=== PATIENT | female | born 1995 | race Caucasian/White ===

== ENCOUNTER 2022-03-12 12:02 | Outpatient (CLI) | payer BC, SELFPAY ==
--- NOTE | 2022-03-12 12:15 | CRLHL7_ITS ---
For Patients: As a result of the Century Cures Act, medical imaging exams and procedure reports are released immediately into your electronic medical record. You may view this report before your referring provider. If you have questions, please contact your health care provider. INDICATION: First trimester scan, establish dates. COMPARISON: None. TECHNIQUE: Real-time patten-scale imaging of the pelvis was performed. FINDINGS: Sonographic imaging demonstrates a single living intrauterine gestation. The embryo demonstrates a regular cardiac rate measuring 159 beats per minute. The embryo`s crown-rump length measurement of 1.2 cm corresponds to a gestational age of 7 weeks 3 days with a sonographic due date of 10/26/2022. There is a normal-appearing yolk sac. There are no gross abnormalities noted within the embryo at this early state of development. The gestational sac has a normal appearance. There is no evidence of a perigestational hemorrhage. The amount of fluid within the sac appears appropriate for gestational age. The cervix is closed. The myometrium appears normal. Corpus luteal cyst right ovary. Left ovary not visualized. There are no suspicious fluid collections noted in the cul-de-sac. IMPRESSION: Normal first trimester OB ultrasound exam. Gestational age calculated at 7 weeks 3 days with a sonographic due date of 10/26/2022. Dictated by Issac Lynn MD @ 03/12/2022 1:12:35 PM (Electronically Signed)
== END 2022-03-12 12:03 | disposition home or self-care (01) ==
PROVIDERS: Visit Provider Registered Nurse
DX: Z34.91 Encounter for supervision of normal pregnancy, unspecified, first trimester (principal); Z3A.08 8 weeks gestation of pregnancy
CPT/HCPCS: 76817; 86592; 86703; 86762; 86787; 86803; 86850; 86900; 86901; 87086; 87340; 87491; 87591

== ENCOUNTER 2022-06-11 13:45 | Outpatient (CLI) | payer BC, SELFPAY ==
--- NOTE | 2022-06-11 14:00 | CRLHL7_ITS ---
For Patients: As a result of the Century Cures Act, medical imaging exams and procedure reports are released immediately into your electronic medical record. You may view this report before your referring provider. If you have questions, please contact your health care provider. INDICATION: Evaluate anatomy. COMPARISON: 03/12/2022 TECHNIQUE: Real time patten scale imaging of the fetus was performed as well as color Doppler analysis of the umbilical vessels. FINDINGS: Sonographic imaging demonstrates a single living intrauterine gestation. Fetus demonstrates a regular cardiac rate of 141 beats per minute. Fetus has a breech position. The placenta lies anteriorly without evidence of placenta previa. The edge of the placenta is located 5.1 cm from the internal cervical os. Amniotic fluid volume appears normal. Single deepest vertical pocket: 5.7 cm. The cervix is closed and measures 4.9 cm in length. The composite ultrasound gestational age is calculated at 20 weeks 4 days with an estimated sonographic due date of 10/25/2022. The estimated weight is 368 grams which lies at the 58th %. The following biometric measurements were obtained: Biparietal diameter: 4.9 cm/20 weeks 6 days 69th% Head circumference: 18.8 cm/21 weeks 1 day 72nd% Abdominal circumference: 15.6 cm/20 weeks 6 days 56th% Femur length: 3.3 cm/20 weeks 2 days 38th% The HC/AC ratio measures: 1.20 range (1.07-1.25) On anatomic survey, there is a normal appearance of the cerebral ventricles, cavum septi pellucidi, cisterna magna and cerebellum. The nose, lips, and facial profile appear normal. The cervical, thoracic and lumbar spine are well visualized and appear normal. There is a normal four-chamber heart view and the left and right ventricular outflow tracts appear normal. The diaphragm and stomach appear normal. The kidneys and bladder also appear normal. There is a normal three-vessel cord and cord insertion site. The four extremities appear normal. IMPRESSION: Normal OB ultrasound exam with concordance of clinical and sonographic dating. No intrinsic abnormalities noted on anatomic survey. Dictated by Issac Lynn MD @ 06/12/2022 9:54:17 AM (Electronically Signed)
== END 2022-06-11 13:46 | disposition home or self-care (01) ==
LOC: US 13:46
PROVIDERS: Visit Provider Advanced Practice Midwife
DX: Z34.92 Encounter for supervision of normal pregnancy, unspecified, second trimester (principal); Z3A.20 20 weeks gestation of pregnancy
CPT/HCPCS: 76805

== ENCOUNTER 2022-06-24 10:43 | Outpatient (CLI) | payer BC, SELFPAY ==
[2022-06-24 10:49] VITALS: BP 119/55; PULSE 66; RESP 18; TEMP 36.8; O2SAT 98
== END 2022-06-24 11:22 | disposition home or self-care (01) ==
LOC: OB OUT 10:44 → OB 10:48
PROVIDERS: Visit Provider Advanced Practice Midwife
DX: O36.8120 Decreased fetal movements, second trimester, not applicable or unspecified (principal); Z3A.22 22 weeks gestation of pregnancy
CPT/HCPCS: 99213

== ENCOUNTER 2022-08-05 13:30 | Outpatient (CLI) | payer BC, SELFPAY | END 2022-08-05 13:31 | disposition home or self-care (01) | LOC: NFLDREF 08-07 11:50 | PROVIDERS: Visit Provider Advanced Practice Midwife | DX: Z34.93 Encounter for supervision of normal pregnancy, unspecified, third trimester (principal); Z3A.28 28 weeks gestation of pregnancy | CPT/HCPCS: 86592; 86850 ==

== ENCOUNTER 2022-10-01 11:37 | Outpatient (CLI) | payer BC, SELFPAY ==
[2022-10-02 10:40] LABS: Strep B DNA Probe NEGATIVE (Negative)
[2022-10-02 12:06] LABS: Strep B Pen/Amox Allergy No
== END 2022-10-01 11:38 | disposition home or self-care (01) ==
LOC: NFLDREF 11:37
PROVIDERS: Visit Provider Advanced Practice Midwife
DX: Z34.93 Encounter for supervision of normal pregnancy, unspecified, third trimester (principal); Z3A.36 36 weeks gestation of pregnancy
CPT/HCPCS: 87081; 87653

== ENCOUNTER 2022-10-13 20:03 | Outpatient (CLI) | payer BC, SELFPAY ==
--- NOTE | 2022-10-13 21:48 | PC.OBNST ---
NST Note NST Note Start: 10/13/22 20:05 Freq: ONCE Status: Active Protocol: Document 10/13/22 21:45 AM (Rec: 10/13/22 21:47 AM [id number]) NST Note 1 Para (# of births) 0 EDC 10/26/22 Gestational Age In Weeks & Days 38 Weeks & 1 Days Patient Presented with Complaint(s) of Other Other Complaints Vaginal vs UTI Reactive Yes Appropriate for Gestational Age Yes RN Aminer RNC Date 10/13/22 Reactive Yes Appropriate for Gestational Age Yes RN dCarlson RN Date 10/13/22 OB NST charge Yes Complete NST Note via Write Note Yes The provider's electronic signature indicates the NST is reactive/appropriate for gestational age. *Note to provider: If an addendum is required, open the patient's chart and click on the note under the Nurse/Allied Health tab.
== END 2022-10-13 20:55 | disposition home or self-care (01) ==
LOC: OB OUT 20:03 → OB 20:04
PROVIDERS: Visit Provider Advanced Practice Midwife
DX: Z34.93 Encounter for supervision of normal pregnancy, unspecified, third trimester (principal); Z3A.38 38 weeks gestation of pregnancy
CPT/HCPCS: 59025; 99213

== ENCOUNTER 2022-10-15 19:53 | Outpatient (CLI) | payer BC, SELFPAY ==
[2022-10-15 20:08] VITALS: BP 118/72; PULSE 83
[2022-10-15 20:10] VITALS: PULSE 82; O2SAT 98
[2022-10-15] MEDS: hydrOXYzine pamoate 25 MG CAPSULE 100 MG PO (21:23)
[2022-10-15] MEDS: MORPHINE 10 MG/ML inj IM (21:23)
--- NOTE | 2022-10-15 21:50 | PC.OBNST ---
NST Note NST Note Start: 10/15/22 19:57 Freq: ONCE Status: Active Protocol: Document 10/15/22 21:44 AVL (Rec: 10/15/22 21:49 AVL [id number]) NST Note 1 Para (# of births) 0 EDC 10/26/22 Gestational Age In Weeks & Days 38 Weeks & 3 Days Patient Presented with Complaint(s) of Contractions/cramping Reactive Yes Appropriate for Gestational Age Yes RANJIT Jensen RN Date 10/15/22 Reactive Yes Appropriate for Gestational Age Yes RANJIT Gar RNC Date 10/15/22 OB NST charge Yes Complete NST Note via Write Note Yes The provider's electronic signature indicates the NST is reactive/appropriate for gestational age. *Note to provider: If an addendum is required, open the patient's chart and click on the note under the Nurse/Allied Health tab.
== END 2022-10-15 21:40 | disposition home or self-care (01) ==
LOC: OB OUT 19:55 → OB 19:56
PROVIDERS: Visit Provider Advanced Practice Midwife
DX: Z34.93 Encounter for supervision of normal pregnancy, unspecified, third trimester (principal); Z3A.38 38 weeks gestation of pregnancy
CPT/HCPCS: 59025; 99213; A9270; J2270

== ENCOUNTER 2022-10-27 21:00 | Inpatient (IN) | payer BC, SELFPAY ==
[2022-10-27 21:08] VITALS: BMI 34.7
[2022-10-27 21:13] VITALS: BP 120/75; PULSE 66; TEMP 36.7
--- NOTE | 2022-10-27 22:05 | P.LDBA_ITS ---
Subjective History of Present Illness Narrative: Patient is being admitted to Labor and Delivery for SROM.? She is a 27 year old at 40 Weeks, 1 Days gestation.? Her full history and physical was dictated by ODALYS Ramon on 10/08/22.? Please see this for details.? Aliya noticed some cramping this evening followed by SROM with clear fluid at 2030. Her contractions have increased in intensity since then and is now having to pause with them but is usually able to talk through them. She is appreciating good movement. 1. BMI 31.9 Hemoglobin A1c:Hemoglobin A1c 5.2% Rec. baby ASA at 12 wks 2. Varicella non-immune. Rec. PP vaccine [] 3. Blood Type: O NEG Rhogam at 28 weeks: received Needs Rhogam pp 4. Severe nausea at 12 weeks, Down 16 lbs Consider IV hydration if unable to keep hydrated, improving at 16 weeks? OB - Problem Based A/P Additional Plan (1) Pain during labor: Status: Acute (2) Post term over 40 weeks: Status: Acute (3) Rh negative status during : Status: Acute Plan ASSESSMENT:? at 40.1 weeks gestation? GBS negative? Uncomplicated ? Admit for labor with SROM ?? PLAN:? 1. Candidate for analgesia of choice. Planning epidural analgesia.? 2. Anticipate ? 3. Expectant management at this time.? 4. IV placement when she is ready for an epidural. 5. Intermittent auscultation after a reactive tracing until condition changes per unit policy.? ? Delivery/Labor/Induction Plan Plan: expectant management OB Result Labs Blood Type: 0 (-) negative Rubella: immune RPR/VDLR: nonreactive GBS Status: negative OB Exam Physical Exam Vital signs: Temp Pulse BP 98.1 F 66 120/75 10/27/22 21:13 10/27/22 21:13 10/27/22 21:13 Narrative: Psychiatric:? Alert and oriented x3? HEENT:? Normocephalic, atraumatic? Neck:? Supple without adenopathy or thyromegaly? Lungs:? Clear to auscultation bilaterally? Heart:? Regular rate and rhythm, no murmur, rub or gallop? Abdomen:? Soft, nontender, and gravid? Extremities:? No edema or erythema? Detailed Labor and Delivery Exam Patient Gravid: Yes Dilation (cm): 2 Effacement (%): 70 Cervix position: posterior Consistency: medium Contraction Frequency: 2-4 Tachysystole: No Contraction intensity: Moderate Fetus (Single) Station: -1 Amniotic Membrane Status: SROM Amniotic Membrane Fluid Description: Clear Heart Rate Baseline: 145 Monitor Accelerations: Absent Monitor Decelerations: None Insurance Agency Sales Manager Variability: Moderate (6-25)
[2022-10-27 22:07] VITALS: TEMP 36.7
[2022-10-27 23:05] VITALS: TEMP 36.7
[2022-10-28] VITALS (106 sets, daily range): BP systolic 83–137; BP diastolic 45–83; PULSE 67–141; RESP 17–19; TEMP 36.6–37.4; O2SAT 89–100
[2022-10-28] MEDS: LACTATED RINGERS 1000 ML 1,000 ML 1025 ML IV ×4 (00:21→16:32)
[2022-10-28] MEDS: LIDOCAINE 2% (PF) 5 ML VIAL EPIDURAL ×2 (01:12→15:28)
[2022-10-28] MEDS: ROPIVACAINE 0.2% 100 ml 100 ML 12 MG EPIDURAL ×3 (01:15→16:22)
--- NOTE | 2022-10-28 01:22 | P.ANBPRC_ITS ---
PFSH PFSH Social History What is your current living situation?: I presently have a place to live Problems where you live: no known problems In the past 12 months, utilities in danger of being shut off: no In the past 12 mos, have been you worried that your food would run out before you had money to buy more?: never true In the past 12 mos, the food you bought just didn't last and you didn't have money to buy more?: never true Smoking Status: Never smoker How often does anyone, including family, friends and others, physically hurt you : never How often does anyone, including family, friends and others, insult or talk down to you: never How often does anyone, including family, friends and others, threaten you with harm: never How often does anyone, including family, friends and others, scream or curse at you: never Little interest or pleasure in doing things: not at all Feeling down, depressed, or hopeless: not at all Meds Home Medications and Allergies Home Medications Medication Instructions Recorded Confirmed Type prenat.vits,yvonne,[id number] 1 tab PO QDAY 03/12/22 10/27/22 History aspirin 81 mg tablet,delayed 81 mg PO DAILY 06/24/22 10/27/22 History release (Adult Low Dose Aspirin) Allergies Allergy/AdvReac Type Severity Reaction Status Date / Time No Known Drug Allergies Allergy Verified 10/21/22 09:16 Results Vital Signs Vital Signs: Last Vital Signs Temp 98.1 F 10/27/22 23:05 Pulse 88 10/28/22 01:22 BP 114/58 L 10/28/22 01:22 Pulse Ox 100 10/28/22 01:20 Weight: 106.594 kg Height: 175.26 cm Anesthesia Procedures Epidural Insertion Patient Location: OB Start Time: 00:45 Stop Time: 01:45 Start Date: 10/28/22 Stop Date: 10/28/22 Reason for Block: procedure for pain Patient Position: sitting Performed By: Rosangela Kumar Preanesthetic Checklist: IV checked, risks and benefits discussed, monitors and equipment checked, pre-op evaluation, timeout performed and anesthesia consent Prep: chlorhexidine gluconate Monitoring: blood pressure monitoring, continuous pulse oximetry and heart rate Approach: midline Vertebral Space: lumbar (1-5) Epidural Technique: OSCAR saline Needle Type: Tuohy needle Injection Technique: continuous catheter (continuous catheter) Needle gauge: 17 Needle Length (cm): 10 cm Needle Insertion Depth (cm): 6 Catheter Gauge: 19 Catheter Type: multi-orifice Catheter at skin depth (cm): 15 Test Dose Result: negative and lidocaine 1.5% with epinephrine 1 to 200,000
[2022-10-28] MEDS: PHENYLEPHRINE 100 MCG/ML SYRINGE IVP ×2 (02:06→03:40)
--- NOTE | 2022-10-28 09:05 | PM.OBPNL ---
Subjective Time Seen by Provider: 09:00 Date Seen: 10/28/22 Narrative: Aliya presented from home with ROM around 2030, clear fluid. Ctx becoming more uncomfortable, she got an epidural during the middle of the night. She remains comfortable with this epidural. Her partner is at the bedside for support. Objective Exam: VSS, afebrile General Appearance:? Calm, cooperative. No acute distress. ? Psychiatric Exam: Alert and oriented, appropriate affect Abdomen: Gravid Ctx: ?Q 2-6 min apart. ?Mild - Moderate FHTs: Baseline: 140 . Variability: moderate. Accels: present. Decels: occ variable or early decel. SVE: 5/90/-2 Membranes: SROM X 12 hours ? Vital Signs: Last Vital Signs Temp 98.5 F 10/28/22 08:27 Pulse 73 10/28/22 08:53 Resp 17 10/28/22 08:27 BP 94/54 L 10/28/22 08:53 Pulse Ox 100 10/28/22 01:35 Contractions Contraction intensity: Moderate Assessment Station: -1 Heart Rate Baseline: 145 Plan Plan: Assessment:?? G 1 P0 at 40.2 weeks gestation?? GBS negative Patient is coping well with challenges of labor.?? Labor type: Spontaneous, Early labor? complicated by: BMI 31.9 Labor complicated by: Little change in cervical dilation ctx spaced out? ? Plan:?? Reviewed little change in dilation and that ctx remain spaced out. Recommended pitocin be started, which pt is agreeable to. Continue with routine intrapartum cares as ordered.?? Patient encouraged to move and change positions to promote physiologic labor and .?? Epidural in place. Anticipate progress to NVD.
[2022-10-28] MEDS: OXYTOCIN 30 unit/500 ML in NS 30 UNIT/500 ML BAG IVPB (09:10)
[2022-10-28] MEDS: LIDOCAINE 1 % PF 30 ML INJECTION (18:45)
--- NOTE | 2022-10-28 19:08 | W.PM.OBVAGDE ---
OB Procedure Vag Delivery Mother Details Mother Details: The patient is a 27 year-old, 1, now Para 1, admitted on 10/27/22 at Days gestation. : 1 Para: 1 Weeks Gestation: 40.2 Admission Date: 10/27/22 Additional Details Amniotic Membrane Status: SROM Amniotic Membrane Rupture Date: 10/27/22 Amniotic Membrane Rupture Time: 20:30 Amniotic Membrane Fluid Description: Clear Analgesia/Anesthesia Type: Epidural and Local Waterbirth: No Pitcoin: Yes (augmentation and AMTSL) Intrapartal Events: Labor Augmentation Labor Onset: 09:00 Complete: 16:42 Pushin:45 Heart: heart tones during second stage: decels noted with pushing, becoming deeper with a slower return to baseline as occurred. Delivery Details Delivery Date: 10/28/22 Delivery Time: 18:27 Route of delivery: Infant Gender: Male Viability: Alive; Heart Rate Present Position at Delivery: OA Delivery Details: Aliya was noted to be a rim, but baby remained high in the pelvis. She was very uncomfortable at that time, and anesthesia bolused her epidural. She was repositioned to hands and knees, and then to flying cowgirl. She then returned to hands and knees, and was noted to be feeling more pressure. SVE done, complete, baby remained high in the pelvis Pushing started, with good maternal effort. As pushing progressed, FHT decels noted to be deepening and slower return to baseline. Scalp stim done, with positive results. She continued to push with good progress. As infant crowned, FHTs noted to be in the 50s, and decision made to push through, even without cx. Head delivered slowly. Nuchal cord noted, loose, reduced prior to delivery. Anterior shoulder noted to be coming slowly, had to hook fingers under the axilla and gentle traction applied to . Reamaining shoulders and body delivered in sideways position, slowly. placed on mothers abdomen, and noted to be floppy. Cord clamped and cut, and to prewarmed open warmer for further evaluation. At 1827 a viable?male delivered in vertex OA presentation over intact perineum via spontaneous vaginal?delivery. weight 8 lb 14 oz. ? 4 at 1 minute and 7 at 5 minutes. ?Shoulder dystocia: no. ?Nuchal cord: yes, reduced prior to delivery Placenta delivered spontaneously and complete at 1836 with a 3 vessel cord. Mother and infant were stable after?delivery. Lacerations:? 2nd degree, repaired with 3-0 vicryl.? Blood loss: 150 mL. Blood loss measurement type: QBL? 1 Minute Interval Total Score: 4 5 Minute Interval Total Score: 7 Additional Details Shoulder Dystocia: No Placenta Delivery Time: 18:36 Placental Delivery Description: Spontaneous Delivery repair: Vicryl Procedure Done: Global Blood Loss: 150 Laceration: Perineal - 2nd Degree Blood Loss Measurement Type: QBL Bakri Used: No Sponge/Need Count Correct: Yes Cord Vessel Description: 3 Vessels, Nuchal Cord and Reduced Event Summary Status: Mother and infant were stable after delivery. Disposition: floor
[2022-10-28] MEDS: IBUPROFEN 600 MG TABLET PO (19:37)
[2022-10-28] MEDS: ACETAMINOPHEN 500 MG TABLET 1000 MG PO (22:44)
[2022-10-29] MEDS: IBUPROFEN 600 MG TABLET PO ×3 (01:16→20:02)
[2022-10-29 01:30] VITALS: BP 103/65; PULSE 71; RESP 18; TEMP 37; O2SAT 96
[2022-10-29] MEDS: ACETAMINOPHEN 500 MG TABLET 1000 MG PO (04:12)
[2022-10-29 05:20] VITALS: BP 105/62; PULSE 71; RESP 16; TEMP 36.6; O2SAT 96
[2022-10-29] MEDS: DOCUSATE SODIUM 100 MG CAPSULE PO (08:13)
[2022-10-29 08:16] VITALS: BP 106/65; PULSE 78; RESP 16; TEMP 36.6; O2SAT 96
--- NOTE | 2022-10-29 09:03 | PM.OBPNVD1 ---
OB - PN:Subj Subjective Date Seen: 10/29/22 Patient comments OB post-: no complaints, pain well controlled, perineal pain, tolerating diet and flatus present [place] infant status: and doing well Narrative: Aliya is a 27 y.o. who was admitted to L & D for spontaneous onset of labor. ?She had an uncomplicated NVD.?The patient feels well. ?The pain is well controlled with current medications. ?She has no new complaints. ?She is breast feeding and reports things are going well.? the patient has done well.? Vitals have been stable.? She has remained afebrile.? Has a good appetite, is tolerating a general diet. ?She is voiding without difficulty.? She is passing gas and has not had a bowel movement.? She is ambulating and denies any dizziness.? Has small amount of rubra lochia. OB - PN: Obj Exam Physical Exam: Vital signs: Temp Pulse Resp BP Pulse Ox O2 Del Method 97.8 F 78 16 106/65 96 Room Air 10/29/22 08:16 10/29/22 08:16 10/29/22 08:16 10/29/22 08:16 10/29/22 08:16 10/29/22 08:16 Narrative: GENERAL APPEARANCE:? normal affect, alert, no distress MOOD:? appropriate CHEST:? clear to auscultation HEART:? regular rate and rhythm ABDOMEN:? soft, non-tender the uterine fundus is at Umbilicus, Midline and is appropriate for the stage of recovery. PERINEUM:? mild edema of the perineum, there is a Perineal Laceration,? 2nd degree, that is healing well. EXTREMITIES:? normal and no edema OB - PN: A/P Delivery Assessment and Plan (1) care and examination immediately after delivery: Status: Acute (2) Lactating mother: Status: Acute Plan day: 1 Plan: routine care Comments: May see if desired. Anticipate discharge tomorrow.
[2022-10-29 12:04] VITALS: BP 108/68; PULSE 70; RESP 18; TEMP 36.7; O2SAT 96
[2022-10-29 16:00] VITALS: BP 109/68; PULSE 75; RESP 16; TEMP 36.9; O2SAT 98
[2022-10-29 23:58] VITALS: BP 106/62; PULSE 73; RESP 16; TEMP 36.8; O2SAT 95
--- NOTE | 2022-10-30 07:28 | P.DS_ITS ---
DS: Providers Provider Time Seen by Provider: 07:28 Date Seen: 10/30/22 Date of admission: 10/27/22 21:00 Primary care physician: Not a Local Provider Admitting Clinician: Melissa Smith CNM Attending Physician on discharge: Melissa Smith CNM Date of Discharge: 10/30/22 DS: Diagnosis Discharge Diagnosis (1) care and examination immediately after delivery: Status: Acute (2) NVD (normal vaginal delivery): Status: Acute (3) Lactating mother: Status: Acute (4) Second degree laceration of perineum, delivered, current hospitalization: Status: Acute (5) Rh negative status during : Status: Acute Exam Narrative: Exam Narrative: VSS, afebrile GENERAL APPEARANCE: ?normal affect, alert, no distress MOOD: ?appropriate HEENT: normocephalic, neck supple, full ROM CHEST: ?Symmetrical chest wall movement. ?Normal respiratory effort. ?Clear to auscultation HEART: ?regular rate and rhythm ABDOMEN: ?soft, non-tender. Uterine fundus is firm, at Umbilicus, Midline and is appropriate for the stage of recovery. ?Bowel sounds present. PERINEUM: ?mild edema of the perineum, there is a 2nd degree laceration that is healing well. EXTREMITIES: ?normal and trace edema Const: Vital Signs, click to edit/add: Vital Signs - 24 hr 10/29/22 08:16 10/29/22 12:04 10/29/22 16:00 Temperature 97.8 F 98.1 F 98.4 F Pulse Rate [Pulse Oximeter] 78 70 75 Respiratory Rate 16 18 16 Blood Pressure [Le ft Arm] 106/65 108/68 109/68 Pulse Oximetry 96 96 98 Oxygen Delivery Me thod Room Air Room Air Room Air 10/29/22 23:58 Temperature 98.2 F Pulse Rate [Pulse Oximeter] 73 Respiratory Rate 16 Blood Pressure [Le ft Arm] 106/62 Pulse Oximetry 95 Oxygen Delivery Me thod Room Air Documenting provider has reviewed patient's vital signs: yes OB - DS: Summary Hospital Course Hospital Course: Aliya is a 27 y.o. G 1 P 1 who was admitted to L & D for SROM. ?She had an uncomplicated NVD The patient feels well. ?The pain is well controlled with current medications. ?She has no new complaints. ?She is breast feeding and reports things are going well overall, though baby was a little sleepy last night and not latching well.? the patient has done well.? Vitals have been stable.? She has remained afebrile.? Has a good appetite, is tolerating a general diet. ?She is voiding without difficulty.? She is passing gas and has not had a bowel movement.? She is ambulating and denies any dizziness.? Has Small amount of rubra lochia. She is planning condoms for prevention. Problems: none plan: Discharge home with baby. Follow up in 2 weeks and 6 weeks. , may follow up with if needed Peripartum Data Infant delivery method: Vaginal Laceration description: Perineal - 2nd Degree complications: none [place] Gender: Male Infant Discharge Plan: Home Status at Discharge Functional status at discharge: independent ambulation Overall status at discharge: patient is progressing back to baseline Time Spent with Patient Time attestation: Total time spent providing and/or coordinating discharge services: Time spent: Less than 30 minutes Discharge Plan Discharge Disposition: Home, Self-Care Date of Admission: 10/27/22 21:00 Attending Provider on Discharge: Olga Herrera Primary Care Provider: Provider,Not a Local Condition: Stable Anticipated Discharge Date/Time: 10/30/22 11:00 Discharge Medications: New docusate sodium 100 mg Capsule 100 mg PO BID PRNQty: 100 0RF Rx Instructions: Take 1 cap 1-2 times a day as needed for constipation ibuprofen 600 mg Tablet 600 mg PO Q6H PRNQty: 60 0RF Continued prenat.vits,yvonne,[id number] Tablet 1 tab PO QDAY Discontinued ondansetron HCl 4 mg tablet 4 mg PO Q6H PRN (Reason: nausea and vomiting) Qty: 30 1RF Hold Instructions: no longer needed aspirin [Adult Low Dose Aspirin] 81 mg tablet,delayed release (DR/EC) 81 mg PO DAILY Discharge Orders: Discharge Order (Routine); Ordered 10/30/22 Ordered By: Olga Herrera Patient Education: OB Over the Counter Medication Information, OB Vaginal/Breast Feeding Activity Level: Activity as Tolerated Discharge Diet: Regular Follow Up Appointments: Provider,Not a Local [Primary Care Provider] - Forms: [employer] Info Instructions
[2022-10-30 08:15] VITALS: BP 105/68; PULSE 74; RESP 16; TEMP 36.4; O2SAT 97
== END 2022-10-30 12:53 | disposition home or self-care (01) | DRG 560 ==
LOC: OB OUT 21:00 → OB 21:00
PROVIDERS: Admitting Provider Advanced Practice Midwife; Visit Provider Advanced Practice Midwife
DX: O48.0 Post-term pregnancy (principal); Z3A.40 40 weeks gestation of pregnancy; O26.893 Other specified pregnancy related conditions, third trimester; Z67.41 Type O blood, Rh negative; O70.1 Second degree perineal laceration during delivery; Z37.0 Single live birth
CPT/HCPCS: 1967; 36415; 85461; A9270; J2001; J2371; J2791; J2795; J3010; J7120

== ENCOUNTER 2022-11-26 11:58 | Outpatient (CLI) | payer BC, SELFPAY ==
--- NOTE | 2022-11-26 12:00 | CRLHL7_ITS ---
For Patients: As a result of the Century Cures Act, medical imaging exams and procedure reports are released immediately into your electronic medical record. You may view this report before your referring provider. If you have questions, please contact your health care provider. RIGHT BREAST ULTRASOUND CLINICAL HISTORY: RIGHT breast lump. COMPARISON: None. TECHNIQUE: Real-time ultrasound imaging of RIGHT breast with imaging documentation. FINDINGS: Targeted sonogram RIGHT breast 2 o`clock 7 cm from the nipple performed. Skin thickening noted with subcutaneous edema. There is a circumscribed fluid collection measuring 1.8 x 2.6 x 3.1 cm. Surrounding increased vascularity. IMPRESSION: Mastitis with 3.1 cm abscess RIGHT breast 2 o`clock 7 cm from the nipple. RECOMMENDATIONS: Clinical follow-up. Results and recommendations were discussed with the patient at the time of the exam. BI-RADS Category 2: Benign A lay language report of this examination will be provided to the patient. Dictated by Issac Lynn MD @ 11/27/2022 1:47:49 PM jj/Dictated by: Issac Lynn MD @ 11/27/2022 1:47:00 PM (Electronically Signed)
== END 2022-11-26 11:59 | disposition home or self-care (01) ==
LOC: US 11:58
PROVIDERS: Visit Provider Advanced Practice Midwife
DX: N63.10 Unspecified lump in the right breast, unspecified quadrant (principal); N61.0 Mastitis without abscess; O92.79 Other disorders of lactation; Z39.1 Encounter for care and examination of lactating mother
CPT/HCPCS: 76642

== ENCOUNTER 2022-11-29 10:46 | Outpatient (CLI) | payer BC, SELFPAY ==
--- NOTE | 2022-11-29 11:00 | CRLHL7_ITS ---
For Patients: As a result of the Cures Act, medical imaging exams and procedure reports are released immediately into your electronic medical record. You may view this report before your referring provider. If you have questions, please contact your health care provider. RIGHT BREAST ULTRASOUND CLINICAL HISTORY: RIGHT breast abscess follow-up COMPARISON: 11/26/2022. TECHNIQUE: Real-time ultrasound imaging of RIGHT breast with imaging documentation. FINDINGS: Targeted sonogram upper inner quadrant 2 o`clock 7 cm from the nipple performed. Again noted is a circumscribed fluid collection measuring 3.6 x 2.3 x 2.9 cm, slightly increased in size compared to the prior study. IMPRESSION: Mildly increased size of the RIGHT breast abscess. RECOMMENDATIONS: Ultrasound-guided aspiration. Results and recommendations were discussed with the patient at the time of the exam. BI-RADS Category 2: Benign A lay language report of this examination will be provided to the patient. Dictated by Issac Lynn MD @ 11/29/2022 1:48:56 PM jj/Dictated by: Issac Lynn MD @ 11/29/2022 1:48:00 PM (Electronically Signed)
--- NOTE | 2022-11-29 12:00 | CRLHL7_ITS ---
For Patients: As a result of the Century Cures Act, medical imaging exams and procedure reports are released immediately into your electronic medical record. You may view this report before your referring provider. If you have questions, please contact your health care provider. ULTRASOUND GUIDED RIGHT BREAST ABSCESS DRAINAGE CLINICAL HISTORY: RIGHT BREAST ABSCESS, INCREASING IN SIZE COMPARISON STUDIES: 11/29/2022, 11/26/2022. TECHNIQUE: Real-time ultrasound with image documentation was used for targeting the breast lesion. Ultrasound-guided aspiration occurred. A sample of fluid was sent to the lab for Gram stain and culture. CONSENT and TIME OUT: The procedure, risks, and alternatives were explained to the patient and a consent was signed. Barton Protocol was followed including pre-procedure verification that relevant information/documentation was available, reviewed and properly matched to the patient; consent accurate and complete; and equipment and supplies available. Time Out was conducted just prior to starting procedure to verify the four required elements: patient identity, correct side/site marked (if applicable), procedure, relevant images/results properly labeled and displayed (if applicable). PROCEDURE: The patient was positioned supine on the ultrasound table. The breast was prepped with ChloraPrep. 8 cc of 1 percent lidocaine used for local anesthesia. 7 cc of turbid fluid removed from the abscess. A sample was sent to the lab. LATERALITY: RIGHT breast. LESION: Circumscribed complex fluid collection measuring 3.6 cm at 2 o`clock 7 cm from the nipple. Following the procedure, the fluid collection is much decreased in size. IMPRESSION: Ultrasound-guided abscess drainage. ACR not applicable Dictated by Issac Lynn MD @ 11/29/2022 1:50:58 PM jj/Dictated by: Issac Lynn MD @ 11/29/2022 1:51:00 PM (Electronically Signed)
== END 2022-11-29 10:47 | disposition home or self-care (01) ==
LOC: US 10:47
PROVIDERS: Visit Provider Advanced Practice Midwife
DX: O91.13 Abscess of breast associated with lactation (principal); Z39.1 Encounter for care and examination of lactating mother
CPT/HCPCS: 19000; 76642; 76942; 87070; 87186; A4649

== ENCOUNTER 2023-10-05 20:46 | Emergency (ER) | payer BC, SELFPAY ==
[2023-10-05 21:04] VITALS: BP 110/75; PULSE 109; RESP 16; TEMP 38.4; O2SAT 98; BMI 29.5
--- NOTE | 2023-10-05 21:12 | ED_ITS ---
HPI - General Adult General Chief complaint: Back Injury/Pain Stated complaint: Back pain, fever, sore throat Time Seen by Provider: 10/05/23 21:10 History of Present Illness HPI narrative: pt with complaint of back pain, fever, sore throat. Started last night. Took Ibuprofen at 1930, 600 mg and Advil cold & sinus 1 pill . No reports of shortness of breath. No reported injuries associated to cause back pain . 28-year-old woman presenting to the emergency department with concern of back pain. She has also had fever and sore throat. Has been treating with ibuprofen and cold and sinus medication. No rashes noted. No particular exposures. Hurts to swallow but no difficulty breathing. No dysuria frequency or urgency. No constipation. No diarrhea. Related Data Home Medications ?Medication ?Instructions ?Recorded ?Confirmed prenat.vits,yvonne,[id number] 1 tab PO QDAY 03/12/22 12/09/22 Allergies Allergy/AdvReac Type Severity Reaction Status Date / Time No Known Drug Allergies Allergy Verified 12/09/22 09:35 Review of Systems Status of ROS: Reports: 6 or more systems reviewed and unremarkable except as noted in History and below [facility] Medical History Abscess of right breast associated with ?O91.13 - Abscess of breast associated with (ICD-10) NVD (normal vaginal delivery) ?O80 - Encounter for full-term uncomplicated delivery (ICD-10) Social History What is your current living situation?: I presently have a place to live Problems where you live: no known problems In the past 12 months, utilities in danger of being shut off: no In past 12 months, lack of transportation kept you from medical appts, meetings, work, or getting things needed for daily living: no In the past 12 mos, have been you worried that your food would run out before you had money to buy more?: never true In the past 12 mos, the food you bought just didn't last and you didn't have money to buy more?: never true Smoking Status: Never smoker Non-prescribed substance use: denies use How often does anyone, including family, friends and others, physically hurt you : never How often does anyone, including family, friends and others, insult or talk down to you: never How often does anyone, including family, friends and others, threaten you with harm: never How often does anyone, including family, friends and others, scream or curse at you: never Little interest or pleasure in doing things: not at all Feeling down, depressed, or hopeless: not at all service: No Exam Narrative: Exam Narrative: Pleasant. NAD but seems uncomfortable. Skin is quite warm but without apparent rash. Looks a little flushed. No stridor. Lungs are clear. Heart is elevated in rate with a regular rhythm. Mildly swollen tonsils with a little exudate on the right. Mildly erythematous posterior oropharynx otherwise. No anterior or posterior cervical lymphadenopathy. Extremities are well perfused without edema. Bilateral flank pain to percussion. Const: Vital Signs, click to edit/add: Vital Signs - 24 hr 10/05/23 21:04 Temperature 101.1 F H Pulse Rate [Left P ulse Oximeter] 109 H Respiratory Rate 16 Blood Pressure [Ri ght Upper Arm] 110/75 Pulse Oximetry 98 Oxygen Delivery Me thod Room Air Documenting provider has reviewed patient's vital signs: yes Course Vital Signs Vital signs: Initial Vital Signs Temperature 101.1 F H 10/05/23 21:04 Temperature Source Oral 10/05/23 21:04 Pulse Rate 109 H 10/05/23 21:04 Pulse Rhythm Regular 10/05/23 21:04 Respiratory Rate 16 10/05/23 21:04 Blood Pressure 110/75 10/05/23 21:04 Blood Pressure Mean 86 10/05/23 21:04 Blood Pressure Position Sitting 10/05/23 21:04 Pulse Oximetry 98 10/05/23 21:04 Oxygen Delivery Method Room Air 10/05/23 21:04 Vital Signs Temperature 101.1 F H 10/05/23 21:04 Pulse Rate 109 H 10/05/23 21:04 Respiratory Rate 16 10/05/23 21:04 Blood Pressure 110/75 10/05/23 21:04 Pulse Oximetry 98 10/05/23 21:04 Oxygen Delivery Method Room Air 10/05/23 21:04 Temperature 101.1 F H 10/05/23 21:04 Pulse Rate 109 H 10/05/23 21:04 Respiratory Rate 16 10/05/23 21:04 Blood Pressure 110/75 10/05/23 21:04 Pulse Oximetry 98 10/05/23 21:04 Oxygen Delivery Method Room Air 10/05/23 21:04 Medical Decision Making MDM Narrative Medical decision making narrative: I suspect that the flank tenderness is more sales representative livestock of myalgia but would screen for urinary tract infection in spite of absence of typical symptoms. Probably viral pharyngitis differential includes mono. Looks less likely to be typical strep throat but certainly possible. Would screen for this as well. Otherwise not described any no other vector borne illnesses that I would screen for at this time. Limited duration of symptoms. I would primarily screen for strep at this time and then reassess pending result. Strep was actually positive. Discussed potential injection of Bicillin. Ultimately settled on pills left as available in [facility]. See patient discharge plan for further discussion Lab Data Lab results reviewed: Yes I reviewed the patient's lab results Labs: Lab Results 10/05/23 Range/Units 21:10 Group A Strep DNA DETECTED A (Not Detectd) Discharge Plan Discharge Clinical Impression: Acute streptococcal pharyngitis Patient Disposition: Home, Self-Care Condition: Stable Additional Instructions: Stay well-hydrated. If toothbrushes are kept in close vicinity to one another, take all toothbrushes and place in boiling water for 3 minutes. Separate your toothbrush out and repeat in boiling water on day 3 and day 6. Can take up to 800 mg of ibuprofen or up to 1000 mg of acetaminophen per dose. Alternative to ibuprofen might be up to 500 mg naproxen 2 times daily. Penicillin prescribed from [facility] Prescriptions: No Action prenat.vits,yvonne,[id number] Tablet 1 tab PO QDAY Follow Up/Referrals: Provider,Not a Local [Primary Care Provider] - Stand Alone Forms: MyHealth Info Instructions
[2023-10-05 21:48] LABS: Strep A DNA Probe* DETECTED (Not Detectd)
== END 2023-10-05 22:21 | disposition home or self-care (01) ==
PROVIDERS: Emergency Provider Family Medicine
DX: J02.0 Streptococcal pharyngitis (principal)
CPT/HCPCS: 81001; 87651; 99283; 99284

== ENCOUNTER 2024-09-16 09:14 | Outpatient (CLI) | payer BC, SELFPAY | END 2024-09-16 09:15 | disposition home or self-care (01) | LOC: NFLDREF 09-21 07:49 | PROVIDERS: Visit Provider Registered Nurse | DX: N91.5 Oligomenorrhea, unspecified (principal) | CPT/HCPCS: 84144; 84443 ==

== ENCOUNTER 2024-11-23 09:10 | Outpatient (CLI) | payer BC, SELFPAY | END 2024-11-23 09:11 | disposition home or self-care (01) | LOC: NFLDREF 11-29 01:43 | PROVIDERS: Visit Provider Registered Nurse | DX: N97.9 Female infertility, unspecified (principal); N91.5 Oligomenorrhea, unspecified | CPT/HCPCS: 84144 ==

== ENCOUNTER 2024-12-21 13:38 | Outpatient (CLI) | payer BC, SELFPAY ==
[2024-12-21 15:52] LABS: Bacterial Vaginosis* Negative (Negative); Candida glab/krus NOT DETECTED (No Detected)
[2024-12-21 16:24] LABS: Chlamydia DNA Amplified* NOT DETECTED (No Detected); GC DNA Amplified* NOT DETECTED (No Detected)
== END 2024-12-21 13:39 | disposition home or self-care (01) ==
PROVIDERS: Visit Provider Advanced Practice Midwife
DX: Z34.81 Encounter for supervision of other normal pregnancy, first trimester (principal); N89.8 Other specified noninflammatory disorders of vagina
CPT/HCPCS: 81513; 87086; 87481; 87491; 87591; 87661

== ENCOUNTER 2024-12-31 07:08 | Outpatient (CLI) | payer BC, SELFPAY ==
--- NOTE | 2024-12-31 07:15 | CRLHL7_ITS ---
For Patients: As a result of the Cures Act, medical imaging exams and procedure reports are released immediately into your electronic medical record. You may view this report before your referring provider. If you have questions, please contact your health care provider. OB ULTRASOUND LESS THAN 14 WEEKS, 12/31/2024 CLINICAL HISTORY: Dating and viability. COMPARISON: None. TECHNIQUE: Grayscale and color Doppler ultrasound of the uterus and ovaries from a transvaginal approach. Transvaginal ultrasound of the pelvis was performed to better evaluate the genitourinary organs such as the ovaries and/or endometrium. FINDINGS: Imaging: Transvaginal. LMP: 11/03/2024. JAYNA by LMP: 08/10/2024. GA: 8 weeks 2 days. CRL: 1.6 cm, 8 weeks 0 days. JAYNA 08/12/2025. FHR: 163 bpm. GEST SAC: 3.5 cm, appears WNL. YOLK SAC: 3.5 mm, appears WNL. RIGHT OV: 3.5 x 3.1 x 2.9 cm, WNL. CL. LEFT OV: 2.9 x 1.8 x 2.2 cm, WNL. IMPRESSION: Single living intrauterine measures 8 weeks 0 days with a sonographic due date of 08/12/2025. Issac Lynn M.D. Diagnostic Radiologist [email or web address] Transcribed: 2:27 pm DW/Dictated by: Issac Lynn MD @ 12/31/2024 1:51:00 PM (Electronically Signed)
== END 2024-12-31 07:09 | disposition home or self-care (01) ==
LOC: US 07:09
PROVIDERS: Visit Provider Advanced Practice Midwife
DX: Z34.91 Encounter for supervision of normal pregnancy, unspecified, first trimester (principal); Z3A.08 8 weeks gestation of pregnancy
CPT/HCPCS: 76817

== ENCOUNTER 2025-01-28 08:48 | Outpatient (CLI) | payer BC, SELFPAY | END 2025-01-28 08:49 | disposition home or self-care (01) | LOC: NFLDREF 01-31 17:51 | PROVIDERS: Visit Provider Advanced Practice Midwife | DX: Z34.92 Encounter for supervision of normal pregnancy, unspecified, second trimester (principal) | CPT/HCPCS: 83020; 83021; 85660; 86592; 86703; 86704; 86706; 86762; 86787; 86803; 86850; 87086; 87340 ==

== ENCOUNTER 2025-03-25 08:10 | Outpatient (CLI) | payer BC, SELFPAY ==
--- NOTE | 2025-03-25 08:15 | CRLHL7_ITS ---
For Patients: As a result of the Century Cures Act, medical imaging exams and procedure reports are released immediately into your electronic medical record. You may view this report before your referring provider. If you have questions, please contact your health care provider. OB ULTRASOUND GREATER THAN 14 WEEKS CLINICAL HISTORY: scan. TECHNIQUE: Real time patten scale imaging of the fetus was performed. Transabdominal imaging performed. FINDINGS: JAYNA by LMP: 08/10/2025. GA: 20 weeks 2 days. Position: Breech. Cervix: Visualized. Technique: TA. Length of closed cervix: 3.8 cm. Placenta/Cord Placenta Position: Posterior. Technique: TA. Placenta tip to internal OS: 5.0 cm. Umbilical Cord: 3 vessel cord. Placenta Insertion: Central. Amniotic Fluid: 3.8 cm SDP. Observed Structures: Calvarium/Spine: Cerebellum: 2.0 cm, 20 weeks 1 day Cisterna Magna: 4.6 mm Nuchal Fold: 5.4 mm Lateral Ventricle: 6.0 mm CSP Choroid Plexus Midline Falx Spine Abdomen: Stomach Abd Cord Insert Urinary Bladder Kidneys Diaphragm Face: Nose/Lips Orbital view Profile Limbs: Upper Extremities Lower Extremities Feet IMPRESSION: 1. Concordance of clinical and sonographic dating. 2. Incomplete visualization of the hands and heart views, including the four chamber heart, LVOT and RVOT. Remainder of the anatomic survey is normal. Short-term follow-up is recommended. Issac Lynn M.D. Diagnostic Radiologist [email or web address] Transcribed: 11:14 am DW/Dictated by: Issac Lynn MD @ 03/25/2025 10:45:00 AM (Electronically Signed)
== END 2025-03-25 08:11 | disposition home or self-care (01) ==
PROVIDERS: Visit Provider Advanced Practice Midwife
DX: Z34.92 Encounter for supervision of normal pregnancy, unspecified, second trimester (principal); Z3A.20 20 weeks gestation of pregnancy
CPT/HCPCS: 76805

== ENCOUNTER 2025-04-08 07:14 | Outpatient (CLI) | payer BC, SELFPAY ==
--- NOTE | 2025-04-08 07:15 | CRLHL7_ITS ---
For Patients: As a result of the Century Cures Act, medical imaging exams and procedure reports are released immediately into your electronic medical record. You may view this report before your referring provider. If you have questions, please contact your health care provider. OB ULTRASOUND FOLLOW-UP CLINICAL HISTORY: Follow-up suboptimal views hands and heart. TECHNIQUE: Real time patten scale imaging of the fetus was performed. Transabdominal imaging performed. COMPARISON: 03/25/2025, 12/31/2024. FINDINGS: JAYNA by LMP/US: 08/10/2024. GA: 22 weeks 2 days. Gestation: Single. Cervix: Not visualized. Positioning: Vertex. Amniotic Fluid: 3.9 cm SDP. Placenta: Technique: TA. Placenta Position: Posterior. Dopplers: Heart Rate: 127 bpm. IMPRESSION: Normal three vessel trachea view, four chamber heart, LVOT, RVOT, diaphragm, three vessel view and hands. Issac Lynn M.D. Diagnostic Radiologist [email or web address] DW/Dictated by: Issac Lynn MD @ 04/08/2025 9:40:00 AM (Electronically Signed)
== END 2025-04-08 07:15 | disposition home or self-care (01) ==
LOC: US 07:15
PROVIDERS: Visit Provider Advanced Practice Midwife
DX: Z36.89 Encounter for other specified antenatal screening (principal); Z36.3 Encounter for antenatal screening for malformations; Z3A.22 22 weeks gestation of pregnancy
CPT/HCPCS: 76816